=== PATIENT | female | born 1985 | race Caucasian/White ===

== ENCOUNTER 2018-03-07 01:34 | Emergency (ER) | payer OTHER ==
--- NOTE | 2018-03-07 01:43 | EDPHY ---
H & P Time Seen by Provider: 03/07/18 01:43 HPI/ROS: HPI CHIEF COMPLAINT: Nausea vomiting HISTORY OF PRESENT ILLNESS: Very pleasant 32-year-old female, history of migraine headaches otherwise healthy, presents emergency room nausea vomiting. Patient was at work tonight. She works 6:00 p.m. To 6:00 a.m. It is now 2:00 a.m.. She works as a dispatcher. She states she was sitting down at work and ultrasound very nauseous and vomited 1 time. No headache. Denies chest pain shortness of breath, denies cough. Denies abdominal pain. She states earlier today she felt like she had a fever to 102. Took a temperature orally. No urinary symptoms. She does have abrasions left lateral knee. But no significant swelling or pain or redness. Due to the vomiting at work not feeling well she decided come the emergency room. She denies headache or stiff neck. Denies fever currently. Denies cough or shortness of breath. Past Medical History: Migraine headaches Past Surgical History: Denies recent surgery Social History: Denies drugs alcohol tobacco. Family History: Noncontributory ROS REVIEW OF SYSTEMS: 10 Systems were reviewed and negative with the exception of the elements mentioned in the history of present illness. Exam Constitutional appears well nontoxic vital signs stable afebrile triage nursing summary reviewed, vital signs reviewed, awake/alert. Eyes normal conjunctivae and sclera, EOMI, PERRLA. HENT normal inspection, atraumatic, moist mucus membranes, no epistaxis, neck supple/ no meningismus, no raccoon eyes. Respiratory clear to auscultation bilaterally, normal breath sounds, no respiratory distress, no wheezing. Cardiovascular rate normal, regular rhythm, no murmur, no edema, distal pulses normal. Gastrointestinal soft, non-tender, no rebound, no guarding, normal bowel sounds, no distension, no pulsatile mass. Genitourinary no CVA tenderness. Musculoskeletal no midline vertebral tenderness, full range of motion, no calf swelling, no tenderness of extremities, no meningismus, good pulses, neurovascularly intact. Skin circular 3 cm abrasion left lateral knee. No significant cellulitis, abscess. Neurologic awake, alert and oriented x 3, AAOx3, moves all 4 extremities equally, motor intact, sensory intact, CN II-XII intact, normal cerebellar, normal vision, normal speech. Psychiatric normal mood/affect. Heme/Lymph/Immune no lymphadenopathy. Differential Diagnosis: Includes but is not limited to in a particular order dehydration, electrolyte disturbance, urinary tract infection, , cellulitis. Medical Decision Making: Plan for this patient IV establishment IV fluid bolus , Zofran for nausea, check basic electrolytes, CBC, urinalysis. Re-evaluate. Re-evaluation: 0403: Re-evaluation at this time resting comfortably no acute distress feels better after IV Phenergan IV fluids. Denies any chest pain or shortness of breath. Abdomen remained soft. His abrasion left lateral leg. Will place on Keflex recommend warm soaks. Watch closely. For worsening symptoms return to the emergency room. Patient is comfortable this plan. Prescription provided for Keflex and Phenergan. Return precautions discussed. Source: Patient Constitutional: Initial Vital Signs Temperature (C) 37.0 C 03/07/18 01:44 Heart Rate 87 03/07/18 01:44 Respiratory Rate 16 03/07/18 01:44 Blood Pressure 146/105 H 03/07/18 01:44 O2 Sat (%) 94 03/07/18 01:44 O2 Delivery Mode Room Air Allergies/Adverse Reactions: sumatriptan [From Imitrex] Allergy (Verified 03/07/18 01:54) Home Medications: Medication Instructions Recorded Cephalexin [Keflex] 500 mg PO Q6H #28 cap 03/07/18 Promethazine HCl 25 mg PO Q6-8PRN PRN #10 tablet 03/07/18 Verapamil [Verapamil HCl] 5 mg 03/07/18 Medical Decision Making - Data Points Laboratory Results: Laboratory Results 03/07/18 02:05 03/07/18 02:05 03/07/18 03/07/18 03/07/18 02:45 02:05 02:05 WBC RBC Hgb Hct MCV MCH MCHC RDW Plt Count MPV Neut % (Auto) Lymph % (Auto) [place] % (Auto) Eos % (Auto) Baso % (Auto) Nucleat RBC Rel Count Absolute Neuts (auto) Absolute Lymphs (auto) Absolute Monos (auto) Absolute Eos (auto) Absolute Basos (auto) Absolute Nucleated RBC Immature Gran % Immature Gran # Sodium 139 mEq/L mEq/L (135-145) Potassium 3.8 mEq/L mEq/L (3.3-5.0) Chloride 103 mEq/L mEq/L (97-110) Carbon Dioxide 24 mEq/l mEq/l (22-31) Anion Gap 12 mEq/L mEq/L (8-16) BUN 11 mg/dL mg/dL (7-23) Creatinine 0.7 mg/dL mg/dL (0.6-1.0) Estimated GFR > 60 Glucose 125 mg/dL H mg/dL (70-100) Calcium 9.9 mg/dL mg/dL (8.5-10.4) Total Bilirubin 0.3 mg/dL mg/dL (0.1-1.4) Conjugated Bilirubin 0.1 mg/dL mg/dL (0.0-0.5) Unconjugated Bilirubin 0.2 mg/dL mg/dL (0.0-1.1) AST 18 IU/L IU/L (14-46) ALT 29 IU/L IU/L (9-52) Alkaline Phosphatase 59 IU/L IU/L (38-126) Total Protein 7.2 g/dL g/dL (6.3-8.2) Albumin 4.4 g/dL g/dL (3.5-5.0) Lipase 141 IU/L IU/L (23-300) Beta HCG, Qual NEGATIVE Urine Color YELLOW Urine Appearance HAZY Urine pH 5.0 (5.0-7.5) Ur Specific [place] 1.025 (1.002-1.030) Urine Protein NEGATIVE (NEGATIVE) Urine Ketones NEGATIVE (NEGATIVE) Urine Blood NEGATIVE (NEGATIVE) Urine Nitrate NEGATIVE (NEGATIVE) Urine Bilirubin NEGATIVE (NEGATIVE) Urine Urobilinogen NEGATIVE EU EU (0.2-1.0) Ur Leukocyte Esterase NEGATIVE (NEGATIVE) Urine Glucose NEGATIVE (NEGATIVE) 03/07/18 02:05 WBC 8.86 10^3/uL 10^3/uL (3.80-9.50) RBC 4.50 10^6/uL 10^6/uL (4.18-5.33) Hgb 14.7 g/dL g/dL (12.6-16.3) Hct 39.6 % % (38.0-47.0) MCV 88.0 fL fL (81.5-99.8) MCH 32.7 pg pg (27.9-34.1) MCHC 37.1 g/dL H g/dL (32.4-36.7) RDW 11.7 % % (11.5-15.2) Plt Count 314 10^3/uL 10^3/uL (150-400) MPV 9.7 fL fL (8.7-11.7) Neut % (Auto) 61.2 % % (39.3-74.2) Lymph % (Auto) 32.1 % % (15.0-45.0) [place] % (Auto) 5.3 % % (4.5-13.0) Eos % (Auto) 0.6 % % (0.6-7.6) Baso % (Auto) 0.7 % % (0.3-1.7) Nucleat RBC Rel Count 0.0 % % (0.0-0.2) Absolute Neuts (auto) 5.43 10^3/uL 10^3/uL (1.70-6.50) Absolute Lymphs (auto) 2.84 10^3/uL 10^3/uL (1.00-3.00) Absolute Monos (auto) 0.47 10^3/uL 10^3/uL (0.30-0.80) Absolute Eos (auto) 0.05 10^3/uL 10^3/uL (0.03-0.40) Absolute Basos (auto) 0.06 10^3/uL 10^3/uL (0.02-0.10) Absolute Nucleated RBC 0.00 10^3/uL 10^3/uL (0-0.01) Immature Gran % 0.1 % % (0.0-1.1) Immature Gran # 0.01 10^3/uL 10^3/uL (0.00-0.10) Sodium Potassium Chloride Carbon Dioxide Anion Gap BUN Creatinine Estimated GFR Glucose Calcium Total Bilirubin Conjugated Bilirubin Unconjugated Bilirubin AST ALT Alkaline Phosphatase Total Protein Albumin Lipase Beta HCG, Qual Urine Color Urine Appearance Urine pH Ur Specific [place] Urine Protein Urine Ketones Urine Blood Urine Nitrate Urine Bilirubin Urine Urobilinogen Ur Leukocyte Esterase Urine Glucose Medications Given: Discontinued Medications Sodium Chloride (Ns) 1,000 mls @ 0 mls/hr IV EDNOW ONE; Wide Open PRN Reason: Protocol Stop: 03/07/18 01:57 Last Admin: 03/07/18 02:03 Dose: 1,000 mls Sodium Chloride (Ns) 1,000 mls @ 0 mls/hr IV ONCE ONE PRN Reason: Wide Open Stop: 03/07/18 02:47 Last Admin: 03/07/18 02:49 Dose: 1,000 mls Ondansetron HCl (Zofran) 4 mg IVP EDNOW ONE Stop: 03/07/18 01:57 Last Admin: 03/07/18 02:08 Dose: 4 mg Promethazine HCl (Phenergan) 12.5 mg IVP ONCE ONE Stop: 03/07/18 02:47 Last Admin: 03/07/18 02:51 Dose: 12.5 mg Departure - Departure Disposition: Home, Routine, Self-Care Clinical Impression: Abrasion Vomiting Qualifiers: Vomiting type: unspecified Vomiting Intractability: non-intractable Nausea presence: with nausea Qualified Code(s): R11.2 - Nausea with vomiting, unspecified Condition: Good Instructions: Abrasion (ED) Additional Instructions: 1. [place] diet over the next 24-48 hours. 2. Stay well-hydrated. 3. Return if worsening symptoms including increasing pain, fever, vomiting. Referrals: NONE *PRIMARY CARE P,. [Primary Care Provider] - As per Instructions Prescriptions: Cephalexin [Keflex] 500 mg PO Q6H #28 cap Promethazine HCl 25 mg PO Q6-8PRN PRN #10 tablet PRN Reason: Nausea/Vomiting, Use 1st
[2018-03-07] MEDS ORDERED: ONDANSETRON 4 MG/2 ML VIAL IVP ONE (01:56)
[2018-03-07] MEDS ORDERED: NS 1,000 ML IV ONE ×2 (01:56→02:46)
[2018-03-07 02:14] LABS: PLATELET COUNT 314 10^3/uL (150-400)
[2018-03-07] MEDS ORDERED: PROMETHAZINE HCL 25 MG/ML INJ IVP ONE (02:46)
[2018-03-07 03:28] VITALS: BP 116/77
== END 2018-03-07 04:15 | disposition home or self-care (01) ==
DX: S80.212A Abrasion, left knee, initial encounter (principal); X58.XXXA Exposure to other specified factors, initial encounter; R11.2 Nausea with vomiting, unspecified; E86.9 Volume depletion, unspecified
CPT/HCPCS: 96374; J2405; J2550